=== PATIENT | male | born 1970 | race Caucasian/White ===

== ENCOUNTER 2017-08-11 22:30 | Inpatient (IN) | payer OTHER ==
[~2017-08-11] VITALS: Ht 165.1 cm; Wt 54.4 kg
--- NOTE | 2017-08-11 22:40 | NUR ---
TO BED 11 A 47 YO MALE PATIENT BIB RA60 FROM [facility] C/O ABD PAIN X 4 DAYS AND LOW BP. UPON ARRIVALM PATIENT IS AAOX2, BREATHING EVEN AND UNLABORED. EXTREMITIES COLD TO TOUCH. DISTENDED ABDOMEN NOTED. PLACED PATIENT ON TELE MONITOR. COMFORT MEASURES RENDERED.
--- NOTE | 2017-08-11 22:50 | NUR ---
STARTED A SALINE LOCK ON THE LAC G18, BLOOD DRAWN AND SENT TO LAB.
[2017-08-11] MEDS ORDERED: IV NS 0.9% 500 ML BAG IV ONE (23:00)
[2017-08-11] MEDS ORDERED: ALBUMIN 25% 12.5 GM/50 ML BOTTLE IV ONE (23:00)
[2017-08-11] MEDS ORDERED: CEFEPIME 1 GM VIAL ONE (23:00)
[2017-08-11] MEDS ORDERED: CEFEPIME 1 GM in IV D5W 50 ML IV ONE (23:00)
[2017-08-11 23:41] LABS: BASOPHILS % (AUTO) 0.2 % (0.0-2.0); EOSINOPHILS % (AUTO) 0.2 % (0.0-6.0); HEMATOCRIT 28 % (39-51); HEMOGLOBIN 9.4 g/dL (13.5-17.5); LYMPHOCYTES # (AUTO) 0.1 /CMM (0.8-4.8); LYMPHOCYTES % (AUTO) 2.6 % (20.0-44.0); MEAN CORPUSCULAR HGB CONC 34 g/dl (31.0-36.0); MEAN CORPUSCULAR VOLUME 90 fL (80-96); MONOCYTES # (AUTO) 0.1 /CMM (0.1-1.30); MONOCYTES % (AUTO) 2.2 % (2.0-12.0); NEUTROPHILS # (AUTO) 5.3 /CMM (1.8-8.9); NEUTROPHILS % (AUTO) 94.8 % (43.0-81.0); PLATELET COUNT (AUTO) 124 /CMM (150-450); RDW COEFFICIENT OF VARIATION 24.2 (11.5-15.0); RED BLOOD CELL COUNT(AUTO) 3.09 MIL/uL (4.5-6.0); WHITE BLOOD COUNT (AUTO) 5.5 K/uL (4.3-11.0)
[2017-08-11 23:47] LABS: INR 1.76 (0.87-1.13)
[2017-08-11 23:48] LABS: TROPONIN I 0.12 ng/mL (0.00-0.056)
[2017-08-11 23:50] LABS: ALBUMIN 1.5 g/dL (3.4-5.0); BILIRUBIN,DIRECT 3.2 mg/dL (0.0-0.2); BILIRUBIN,TOTAL 4.7 mg/dL (0.2-1.0); CALCIUM, SERUM 9.9 mg/dL (8.5-10.1); CREATININE 5.5 mg/dL (0.6-1.3); POTASSIUM 4.7 mmol/L (3.5-5.1); TOTAL PROTEIN, SERUM 7.2 g/dL (6.4-8.2)
[2017-08-12] VITALS (43 sets, daily range): BP systolic 47–104; BP diastolic 23–64
[2017-08-12] MEDS ORDERED: DEXTROSE 50%-WATER 50 ML DISP.SYRIN ONE ×2 (00:09→01:04)
--- NOTE | 2017-08-12 00:27 | NUR ---
blood sugar rechecked post d50, noted with bs at 81mg/dl. Dr De La Cruz notified.
[2017-08-12] MEDS ORDERED: DEXTROSE 50%-WATER 50 ML DISP.SYRIN IVP ONE ×2 (00:30→01:30)
[2017-08-12 00:46] LABS: BAND % (MANUAL) 5 % (0.0-5.0); LYMPHOCYTES % (MANUAL) 4 % (16-48); MONOCYTES % (MANUAL) 3 % (0-11.0); MYELOCYTES % 2 % (0-0); NEUTROPHILS % (MANUAL) 86 (42-76)
--- NOTE | 2017-08-12 00:50 | NUR ---
ICU 260
--- NOTE | 2017-08-12 01:10 | NUR ---
D10 RUNNING AT 100CC/HR PER DR SALINAS ORDERS D10 1/2NS NOT AVAILABLE FOR LOW BLOOD SUGAR.
--- NOTE | 2017-08-12 01:10 | NUR ---
500CC NS BOLUS RUNNING AT [facility] G18 PER DR SALINAS FOR LOW BP OF 81/52.
[2017-08-12] MEDS ORDERED: Sodium Chloride 77 MEQ in IV 10% DEXTROSE 1,000 ML IV PRN (01:30)
[2017-08-12] MEDS ORDERED: IV NS 0.9% 500 ML IV ONE ×2 (01:30→05:00)
[2017-08-12] MEDS ORDERED: VIT1TABL46 PO (01:35)
[2017-08-12] MEDS ORDERED: MIDO5TAB PO (01:35)
[2017-08-12] MEDS ORDERED: CALC-7 PO (01:35)
[2017-08-12] MEDS ORDERED: LEVO75TA7 PO (01:35)
[2017-08-12] MEDS ORDERED: RIFA550T PO (01:35)
[2017-08-12] MEDS ORDERED: CHOL200013 PO (01:35)
[2017-08-12] MEDS ORDERED: LACT10SO PO (01:35)
[2017-08-12 01:58] LABS: ABG BASE EXCESS -20.3 mmol/L; ABG OXYGEN SATURATION 38.8 % (92.0-98.5); ABG PCO2 20.9 mmHg (35.0-45.0); ABG PO2 33.7 mmHg (75.0-100.0); COHb 0.5 % (0.5-1.5); MetHb 0.7 % (0.0-1.5); O2Hb 38.3 % (94.0-97.0); VENT MODE, BG 4L NC
[2017-08-12] MEDS ORDERED: VANCOMYCIN 1 GM in IV NS 0.9% 250 ML IV SCH (02:00)
[2017-08-12] MEDS ORDERED: NOREPINEPHRINE 4 MG/4 ML AMPUL IV ONE ×2 (02:06→06:49)
--- NOTE | 2017-08-12 02:10 | NUR ---
DR SALINAS AT BEDSIDE FOR CENTRAL LINE INSERTION.
[2017-08-12] MEDS ORDERED: VANCOMYCIN 1 GM VIAL ONE (02:38)
[2017-08-12] MEDS: NOREPINEPHRINE 8 MG in IV D5W 500 ML IV PRN ×2 (02:40→06:53)
--- NOTE | 2017-08-12 02:42 | NUR ---
REPORT GIVEN TO ED RN FOR LUPIS.
--- NOTE | 2017-08-12 03:38 | NUR ---
TRANSFERRED PATIENT TO ICU VIA ALS PROTOCOL, NO INCIDENT NOTED. PATIENT REMAINED RESPONSIVE. ONGOING LEVOPHED AT 27MCG/MIN TO LEFT IJ.
[2017-08-12] MEDS ORDERED: CEFEPIME 1 GM in IV NS 0.9% 50 ML IV ONE (04:30)
[2017-08-12] MEDS ORDERED: VANCOMYCIN 1 GM in IV D5W 250 ML IV ONE (04:30)
[2017-08-12 05:07] LABS: CREATININE 5.5 mg/dL (0.6-1.3); MAGNESIUM 3.6 mg/dL (1.8-2.4); PHOSPHORUS 6.2 mg/dL (2.5-4.9); POTASSIUM 3.9 mmol/L (3.5-5.1); RDW COEFFICIENT OF VARIATION 23.3 (11.5-15.0)
[2017-08-12 05:18] LABS: HEMATOCRIT 25 % (39-51); HEMOGLOBIN 8.6 g/dL (13.5-17.5); MEAN CORPUSCULAR HGB CONC 35 g/dl (31.0-36.0); MEAN CORPUSCULAR VOLUME 92 fL (80-96); PLATELET COUNT (AUTO) 108 /CMM (150-450); RED BLOOD CELL COUNT(AUTO) 2.71 MIL/uL (4.5-6.0); WHITE BLOOD COUNT (AUTO) 5.4 K/uL (4.3-11.0)
[2017-08-12 05:33] LABS: ALBUMIN 1.5 g/dL (3.4-5.0)
--- NOTE | 2017-08-12 06:00 | NUR ---
RESOLUTION ANALYST PT WAS ADMITTED FROM ER WITH DIAGNOSIS SEPTIC SHICK. PT IS AWAKE, ALERT, ORIENTED X 2, FOLLOWS COMMANDS, MOVES ALL EXTREMITIES, LEGS ARE WEEK. SCOPE :V-PACING. LUNGS CLEAR, O2 3 L VIA N/C. PT WAS HYPOGLYCEMIC & HYPOTENSIVE. BOLUS NS IV 1000 ML GIVEN, D50 IVP X 2, VANCOMYCIN & CEFEPIME IVPB'S. STARTED LEVOPHED DRIP. PT HAS LEFT IJ TLC. ABDOMEN IS DISTENDED, TENDER, PAINFUL /BLEVINS LEVEL 2-3 OUT OF 10./BOWEL SOUND DIMINISHED. PT HAS ASCITES & POSSIBLE PERITONEAL CARCINOMATOSIS PER CT ABDOMEN. PT IS SUPPOSED TO HAVE HEMODIALYSIS IN A.M. ANURIC, NPO EXEPT MEDS.PT IS ON D10 IV AT 100 ML/H STARTED IN ER. LAST BS LEVEL 146. LACTIC ACID LEVEL REMAINS HIGH-21, CO2-8. WAS CALLED & MESSAGE LEFT. WILL CONTINUE CLOSE MONITORING.
[2017-08-12] MEDS ORDERED: PHENYLEPHRINE 10 MG/ML VIAL ONE (06:23)
--- NOTE | 2017-08-12 06:29 | NUR ---
PT REMAINS HYPOTENSIVE. GOT ORDER FOR PHENYLEPHRINE DRIP FROM Dilip-Darrel LUNSFORD. D-R MELANIE ORDER STAT ABG & ALBUMIN 25%-25 G IV.
[2017-08-12] MEDS ORDERED: ALBUMIN 25% 12.5 GM/50 ML BOTTLE IV ONE (06:30)
[2017-08-12] MEDS ORDERED: ALBUMIN 25% 100 ML IV ONE (06:33)
[2017-08-12] MEDS: PHENYLEPHRINE 80 MG in IV D5W 250 ML IV PRN ×4 (06:35→20:44)
--- NOTE | 2017-08-12 07:30 | NUR ---
ICU/RN: Pt in bed A&Ox4, drowsy, however able to communicate with staff. POLST in chart, full code. Educated pt on current POC and discussed code status with pt. Pt stated "yes" and wishes full aggressive measures in case of further clinical deterioration to primary RN and [facility].
--- NOTE | 2017-08-12 07:45 | NUR ---
ICU/RN: Dr Santana at bedside; updated on pt status, informed of abn lab values, hypotensive on HD, on BP support with max dose of pressors. New orders noted and carried out.
[2017-08-12] MEDS ORDERED: VASOPRESSIN INJ 50 UNIT in IV D5W 497.5 ML IV PRN (08:00)
[2017-08-12] MEDS ORDERED: FEE PK DOSING 1 MIN EA MC ONE (08:12)
[2017-08-12 08:21] LABS: ABG BASE EXCESS -14.7 mmol/L; ABG OXYGEN SATURATION 94.9 % (92.0-98.5); ABG PCO2 21.4 mmHg (35.0-45.0); ABG PH 7.298 (7.350-7.450); ABG PO2 93.3 mmHg (75.0-100.0); COHb 1.7 % (0.5-1.5); MetHb 0.8 % (0.0-1.5); O2Hb 92.5 % (94.0-97.0); SITE, ABG Right Brachial; VENT MODE, BG NASAL CANNULA
[2017-08-12] MEDS ORDERED: PANTOPRAZOLE 40 MG VIAL IV SCH ×2 (08:30→19:30)
[2017-08-12] MEDS ORDERED: VANCOMYCIN 500 MG in IV D5W 100 ML IV PRN (08:30)
[2017-08-12 08:52] LABS: THYROID STIMULATING HORMONE 1.948 uIU/mL (0.358-3.74)
[2017-08-12] MEDS ORDERED: SODIUM BICARBONATE SYR 50 MEQ/50 ML DISP.SYRIN IV ONE ×4 (08:52→22:01)
--- NOTE | 2017-08-12 08:52 | NUR ---
ICU/RN: Non-admin sodium bicarb - duplicate order.
[2017-08-12] MEDS ORDERED: FLUDROCORTISONE 0.1 MG TABLET PO SCH (09:00)
[2017-08-12] MEDS ORDERED: INSULIN REGULAR, HUMAN 100 UNIT/ML 3 ML VIAL SQ PRN (09:00)
[2017-08-12] MEDS ORDERED: DEXTROSE 50%-WATER 50 ML DISP.SYRIN IV PRN (09:00)
--- NOTE | 2017-08-12 10:07 | NUR ---
SENIOR PHARMACY TECHNICIAN NOTES TERRENCE RONQUILLO AT BEDSIDE FOR MELISSA INSERTION. PER MD ORDER 1% LIDOCAINE FOR PATIENT PROCEDURE.
[2017-08-12] MEDS: HYDROCORTISONE SOD SUCCINATE 100 MG/2 ML VIAL IV SCH ×3 (10:10→17:11)
[2017-08-12] MEDS ORDERED: PROPOFOL 100 ML IV PRN (10:30)
[2017-08-12] MEDS ORDERED: LIDOCAINE 1% INJ 50 ML MDV IJ ONE (10:30)
--- NOTE | 2017-08-12 10:30 | NUR ---
ICU/RN: Pt noted with decreased LOC, informed pt of need for intubation, Dr Crawford and Dante Chowdhury at bedside. Dr Crawford orders intubation. Primary RN on phone with Payton, - informed of pt condition - aware of A-line insertion and ongoing intubation.
--- NOTE | 2017-08-12 10:46 | NUR ---
@ 1030 PT. IS INTUBATED FOR AIRWAY PROTECTION. INTUBATED WITH 7.5 ET TUBE SECURED @ 25 CM [id number]. CO2 COLOR CHANGED IN GOLD COLOR WITH CLEAR BREATH SOUNDS BILATERAL POST INTUBATION. SYMMETRICAL CHEST RISE WITH FOG ON ET TUBE EACH MANUAL RESUSCITATION. VENT SETTINGS BELLOW ORDER: AC 18, VT 500ML, FIO2 100%, NO PEEP. [facility] VENT PLUGGED INTO RED OUTLET WITH ALARMS ON AND FUNCTIONING. DENISEUBAG @ HOB. Addendum: 08/12/17 at 1057 by NAKIA HOLLIS RT Amended: Links added.
--- NOTE | 2017-08-12 10:50 | NUR ---
ICU/RN: Pt s/p intubation ETT 7.5 at 25cm lip line AC 18 TV 500 FIO2% 100 PEEP 0, ABG x 1hr post intubation as ordered by Dr Crawford. application security engineer aware. Addendum: 08/12/17 at 1309 by ANTHONY RUSH RN Noted with moderate amount of oral serosanguineous output. Dr Crawford informed, with orders for GI consult with Dr Traylor for Hx cirrhosis, peritoneal carcinomatosis. Dr Traylor notified. Dr Batres paged to notify of change in pt status. Awaiting call back.
[2017-08-12] MEDS: NOREPINEPHRINE 16 MG in IV D5W 500 ML IV PRN ×2 (10:52→17:21)
[2017-08-12] MEDS: Sodium Bicarbonate 100 MEQ in IV D5/0.45 NACL 1,000 ML IV PRN ×2 (10:53→20:26)
[2017-08-12] MEDS: BLOOD SUGAR DIAGNOSTIC 1 EACH STRIP IN SCH ×2 (11:52→17:12)
--- NOTE | 2017-08-12 11:53 | NUR ---
ET TUBE ADJUSTED ORDER FROM 25 CM TO 22 CM [id number]. Addendum: 08/12/17 at 1154 by NAKIA HOLLIS RT Amended: Links added.
[2017-08-12 12:21] LABS: ABG BASE EXCESS -22.9 mmol/L; ABG OXYGEN SATURATION 96.3 % (92.0-98.5); ABG PH 6.932 (7.350-7.450); ABG PO2 142.7 mmHg (75.0-100.0); AaDO2 532.3 mmHg; COHb 0.9 % (0.5-1.5); O2Hb 94.5 % (94.0-97.0); PEEP,BG 0 cm H2O; SITE, ABG A-Line; VT, ABG 500 mL
[2017-08-12] MEDS ORDERED: ROCURONIUM BROMIDE 50 MG/5 ML IV ONE (12:35)
[2017-08-12] MEDS ORDERED: ETOMIDATE 2 MG/ML VIAL IV ONE (12:35)
--- NOTE | 2017-08-12 12:47 | NUR ---
ANIRUDH MAYORGA PER DR. BONE: AC 30 VT 550 Addendum: 08/12/17 at 1248 by NAKIA HOLLIS RT Amended: Links added.
--- NOTE | 2017-08-12 14:00 | NUR ---
ICU/RN: Pt BP marginal and labile; unable to turn and reposition q2h for skin breakdown prevention. Bilat heels offloaded. Pt kept clean and dry as tolerated.
[2017-08-12 15:13] LABS: ABG BASE EXCESS -19.6 mmol/L; ABG OXYGEN SATURATION 93.3 % (92.0-98.5); ABG PCO2 28.3 mmHg (35.0-45.0); ABG PH 7.094 (7.350-7.450); ABG PO2 97.2 mmHg (75.0-100.0); AaDO2 587.5 mmHg; COHb 1.3 % (0.5-1.5); MetHb 0.9 % (0.0-1.5); O2Hb 91.2 % (94.0-97.0); PEEP,BG 0 cm H2O; SITE, ABG A-Line; VT, ABG 550 mL
--- NOTE | 2017-08-12 15:45 | NUR ---
ICU/RN: Received message from Dr Traylor regarding consult - per , Teresa Melissa, GLASS TECHNICIAN will follow. GLASS TECHNICIAN notified. otr truck driver aware.
--- NOTE | 2017-08-12 17:45 | NUR ---
ICU/RN: Dr Becerril at bedside for surgical consult. Updated on pt status. No new orders.
--- NOTE | 2017-08-12 19:00 | NUR ---
Received patient orally intubated on the ventilator on AC MODE,unresponsive,no gag,no cough reflex,no response even to deep pain.On multiple Pressors( Neosynephrine,Levophed,Vasopressin) at maximum dose.,with Sodium Bicarbonate drip @ 110/ml/hr..TLC via left IJ,Permacath dialysis catheter @ right subclavian.Arterial at right femoral with good waveform,good blood return.Abdomen grossly distended( ascites),jaundiced skin,icteric sclera.Patient full code.
--- NOTE | 2017-08-12 19:00 | NUR ---
ICU/RN: Pt remains intubated, off sedation, on max doses of three pressors, Bicarb infusing, breathing even and unlabored, extremities cool to touch, pupil reaction sluggish to light, hypoactive bowel sounds. V-pacing on monitor. Alarm sounds audible. Care endorsed to PM RN for LUPIS.
[2017-08-12] MEDS ORDERED: METOCLOPRAMIDE HCL 10 MG/2 ML VIAL IV SCH (19:30)
--- NOTE | 2017-08-12 20:30 | NUR ---
at bedside,updated on patient's poor status and unstable condition, stated,she knows her is very sick.Psychological and emotional support rendered to and family,encouraged to call anytime even offered if she wants to stay at the bedside. BP in the 60's ,all pressors at maximum dose,will closely monitor and continue all pressors.
[2017-08-12] MEDS ORDERED: CEFEPIME 1 GM in IV D5W 50 ML IV SCH (21:00)
--- NOTE | 2017-08-12 21:30 | NUR ---
SUBASSEMBLER NOTES OGT inserted ,obtained coffee ground materials (500 ml) ,stared to become bloody .,connected to low intermittene wall suction
--- NOTE | 2017-08-12 21:30 | NUR ---
NIGHTCLUB MANAGER NOTES BP progressively dropping to 40's systolic via Arterial line, progressively patient rhythm to asystole,Code was called at 2150.
--- NOTE | 2017-08-12 22:00 | NUR ---
TAKER OFF HEMP FIBER NOTES Pronounced at 2201 by .
[2017-08-12] MEDS ORDERED: LIDOCAINE 100MG/5ML DISP SYR IV ONE (22:01)
[2017-08-12] MEDS ORDERED: EPINEPHRINE (1:10,000) SYRINGE 1 MG/10 ML DISP.SYRIN IVP ONE (22:01)
[2017-08-12] MEDS ORDERED: AMIODARONE 150 MG/3 ML VIAL IV ONE (22:01)
--- NOTE | 2017-08-12 22:10 | NUR ---
TEAM SPORTS SALES ASSOCIATE NOTES Dr. Thakur was notified og=f the at 2206. First call to [facility] at 2220 spoke to Abenr referral #[id number]
--- NOTE | 2017-08-12 22:55 | NUR ---
LURE MAKER NOTES [facility] called back ,spoke to Magdalene,body was released.
--- NOTE | 2017-08-13 01:45 | NUR ---
MUTUAL FUND SALES AGENT NOTES MORTUARY PICKED UP THE BODY.
== END 2017-08-12 22:02 | disposition expired | DRG 720 ==
LOC: ER 22:34 → ICU 08-12 01:21
PROVIDERS: ADMIT Internal Medicine; ATTEND Internal Medicine
PROC: 5A12012 Performance of Cardiac Output, Single, Manual (ICD-10-PCS; principal; 2017-08-12)
PROC: 5A1D70Z Performance of Urinary Filtration, Intermittent, Less than 6 Hours Per Day (ICD-10-PCS; principal; 2017-08-12)
PROC: B548ZZA Ultrasonography of Superior Vena Cava, Guidance (ICD-10-PCS; principal; 2017-08-12)
PROC: 0BH18EZ Insertion of Endotracheal Airway into Trachea, Via Natural or Artificial Opening Endoscopic (ICD-10-PCS; principal; 2017-08-12)
PROC: 5A1935Z Respiratory Ventilation, Less than 24 Consecutive Hours (ICD-10-PCS; principal; 2017-08-12)
PROC: 02HV33Z Insertion of Infusion Device into Superior Vena Cava, Percutaneous Approach (ICD-10-PCS; principal; 2017-08-12)
PROC: 04HK33Z Insertion of Infusion Device into Right Femoral Artery, Percutaneous Approach (ICD-10-PCS; principal; 2017-08-12)
DX: A41.9 Sepsis, unspecified organism (principal); N17.0 Acute kidney failure with tubular necrosis; I21.A1 Myocardial infarction type 2; J96.00 Acute respiratory failure, unspecified whether with hypoxia or hypercapnia; R65.21 Severe sepsis with septic shock; G92 Toxic encephalopathy; K55.9 Vascular disorder of intestine, unspecified; E43 Unspecified severe protein-calorie malnutrition; K65.2 Spontaneous bacterial peritonitis; D61.818 Other pancytopenia; I48.91 Unspecified atrial fibrillation; N18.6 End stage renal disease; E87.2 Acidosis; K56.7 Ileus, unspecified; D50.9 Iron deficiency anemia, unspecified; E03.9 Hypothyroidism, unspecified; Z99.2 Dependence on renal dialysis; Z86.73 Personal history of transient ischemic attack (TIA), and cerebral infarction without residual deficits; Z87.891 Personal history of nicotine dependence; I50.9 Heart failure, unspecified; Z95.1 Presence of aortocoronary bypass graft; R74.0 Nonspecific elevation of levels of transaminase and lactic acid dehydrogenase [LDH]; K80.20 Calculus of gallbladder without cholecystitis without obstruction; K74.60 Unspecified cirrhosis of liver; Z68.20 Body mass index [BMI] 20.0-20.9, adult; E88.09 Other disorders of plasma-protein metabolism, not elsewhere classified; R18.8 Other ascites; Z95.810 Presence of automatic (implantable) cardiac defibrillator; C78.6 Secondary malignant neoplasm of retroperitoneum and peritoneum
CPT/HCPCS: 36415; 36600; 71045-TC; 74018; 76700-TC; 80048-TC; 80053-TC; 80076-TC; 80202-TC; 82728-TC; 82803-TC; 82962-TC; 83540-TC; 83605-TC; 83735-TC; 84100-TC; 84439-TC; 84443-TC; 84484-TC; 85025-TC; 85730-TC; 86850-TC; 87040-TC; 87081-TC; 87186-TC; 90935-TC; 93307-TC; 94002-TC; A4216; A4606; A6402; C1751; C9113; J0171; J0282; J0692; J1720; J1815; J2001; J2370; J2765; J3370; J3490; J7030; J7040; J7050; J7060; P9017-BL; P9047; Z7610